=== PATIENT | female | born 1955 | race Two or more races ===

== ENCOUNTER 2019-12-06 13:24 | Outpatient (CLI) | payer OTHER ==
[~2019-12-06 13:24] MED LIST: SULINDAC200 MG PO
== END 2019-12-06 13:30 | disposition home or self-care (01) ==
LOC: LAB 13:24
DX: Z11.59 Encounter for screening for other viral diseases (principal)

== ENCOUNTER 2023-05-24 09:31 | Outpatient (CLI) | payer OTHER | END 2023-05-24 09:35 | disposition home or self-care (01) | LOC: SONOGRAMA 09:31 | PROVIDERS: ATTEND Pathology Anatomic Pathology & Clinical Pathology | DX: D34 Benign neoplasm of thyroid gland (principal); E04.9 Nontoxic goiter, unspecified ==